=== PATIENT | female | born 1985 | race Caucasian/White ===

== ENCOUNTER 2018-06-10 21:21 | Emergency (ER) | payer MEDICAID ==
--- NOTE | 2018-06-10 22:20 | EDPHY ---
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 Patient received IM epinephrine and IV Benadryl and Zofran prior to arrival. She then received Solu-Medrol and additional Benadryl by EMS. Patient arrives feeling much better. She has mild residual left eye swelling and uvular swelling. She is tolerating secretions well. No hypoxia, respiratory distress, audible stridor or wheezing. No reports of chest pain or chest tightness. Patient was observed for an hour and half with continued improvement in her symptoms. She does have to epi pens at home but neglected to put them in her purse tonight. She reports these are not . Case discussed with Dr. Bernard. I feel patient is safe for discharge at this time. Encouraged her to carry her EpiPen with her at all times. I encouraged primary care recheck. Warning signs return to emergency department sooner were outlined in person and discharge papers. DIFFERENTIAL DX: Differential includes but not limited to anaphylactic reaction, upper or lower airway compromise, severe bronchoconstriction, angioedema ED PROCEDURES: See lab and/or imaging results below ED COURSE: Patient arrives by EMS. I greeted ambulance. Patient is speaking in full sentences with no audible respiratory distress, wheezing or stridor. Vital signs stable, no hypoxia. Patient reports she is feeling much better. She received an additional 25 mg of Benadryl and 125 of Solu-Medrol in route. Prior to arrival she received 25 mg IV Benadryl, 0.3 mg IM epinephrine, and 4 mg IV Zofran by [facility]. 10:50 P.M.: Patient reassessed, feeling much better, ambulated to the restroom , unsure if her EpiPen is . I will prescribe her EpiPen x2 to have at home. PCP follow-up recommended. Patient verbalized understanding. CHIEF COMPLAINT: Allergic reaction HPI: This is a very pleasant 32-year-old female who presents to the emergency department by EMS from [facility] with an allergic reaction. Patient accidentally ingested walnuts that were in a dessert she had this evening. Patient has a known peanut allergy and normally carries an EpiPen with her but forgot to put it in her purse today. She and her friend reports she immediately had facial swelling, left eye swelling, tongue swelling, throat tightness and chest tightness. She went to a local urgent care, received IV Benadryl, Zofran, and IM epinephrine at approximately 8:50 p.m.. She received Solu-Medrol and an additional dose of Benadryl in route by EMS. Upon arriving here, patient reports she is feeling much better. She is tolerating secretions well. No reported chest tightness or wheezing. She reports she has never had to be intubated for allergic reactions in the past. She was in the emergency department in March last year for an allergic reaction at a time when she again for got her EpiPen and accidentally ingested peanuts. She reports she does have 2 epi pens that are not . She is visiting our area from [place]. She initially felt nauseous but reports this is improved and denies abdominal pain. She denies . PAST MEDICAL HISTORY: Anaphylactic reaction to peanuts See nurse/triage notes for additional history if applicable Pertinent Past Surgical History: None reported Family History: Noncontributory Social History: Nonsmoker REVIEW OF SYSTEMS: All other systems negative Constitutional: No fever, no chills, appetite change. Eyes: No discharge, vision change ENT: Positive for mild sore throat, congestion, denies ear pain. Cardiovascular: No chest pain, no palpitations. Respiratory: No cough, no shortness of breath. Gastrointestinal: No abdominal pain, no vomiting, diarrhea. Skin: No rashes, color change. Neurological: No headache, dizziness, weakness. PHYSICAL EXAM: General Appearance: Alert, oriented, appropriate, cooperative, NAD, well hydrated, non-toxic appearing, VSS, mildly tremulous, no hypoxia. HEENT: TMs are clear bilaterally no perforation or FB, no injection, no evidence of serous or mucopurulent otitis. Oropharynx clear is no erythema or exudates, no tonsillar hypertrophy or asymmetry. Mild uvular edema noted, no significant tongue swelling. Tolerating secretions well. No intraoral lesions. No drooling. No inspiratory stridor or expiratory wheezing Dentition without abnormality. Eyes: PERRLA, no acute vision change, nystagmus, swelling, discharge, pain or photosensitivity. Conjunctiva pink, no pallor or injection Neck: Supple, nontender, no lymphadenopathy, no midline pain, FROM, no meningismus. Respiratory: There are no retractions, lungs are clear to auscultation. Cardiac: Regular rate and rhythm, no murmurs or gallops. Gastrointestinal: Abdomen is soft, nontender, bowel sounds normal, no masses/ hernia, no rigidity, guarding or focal peritoneal findings. Neurological: [ Alert and oriented x 3, CN 2-12 grossly intact Skin: Warm, dry, no rashes, no nodules on palpation. MEDICAL DECISION MAKING: Patient was seen independently. Secondary supervising physician at time of evaluation was Dr. Bernard. Diagnosis: Anaphylactic reaction to walnuts . New, requires workup Summary: See Assessment and Plan for summary of ED visit Decision to obtain medical records or history from someone other than the patient: No Review / Summarize previous medical records: None available Discussed patient with another provider: [facility], Dr. Bernard Patient Progress: Improved. - History Smoking Status: Never smoked - Objective Vital Signs: Initial Vital Signs Temperature (C) 37.1 C 06/10/18 21:31 Heart Rate 108 H 06/10/18 21:31 Respiratory Rate 16 06/10/18 21:31 Blood Pressure 124/79 H 06/10/18 21:31 O2 Sat (%) 97 06/10/18 21:31 O2 Delivery Mode Room Air Allergies/Adverse Reactions: tree nut [Nuts] Allergy (Verified 06/10/18 21:34) Home Medications: Medication Instructions Recorded EPINEPHrine [Epipen 0.3 MG] 0.3 mg IM ONCE #2 syr 06/10/18 Departure - Departure Disposition: Home, Routine, Self-Care Clinical Impression: Anaphylactic reaction Qualifiers: Encounter type: initial encounter Qualified Code(s): T78.2XXA - Anaphylactic shock, unspecified, initial encounter Condition: Good Instructions: Food Allergy (ED), Anaphylaxis (ED) Additional Instructions: DISCHARGE INSTRUCTIONS FROM YOUR DOCTOR Thank you for visiting our emergency department today. Please keep in mind that discharge from the emergency department does not mean that there is nothing wrong - it simply means that we have not identified an emergency condition that requires further evaluation or treatment in the hospital. You should always plan to follow up with primary care for re-evaluation of your condition in the next 2-3 days. If you have been referred to a specialist, please call as soon as possible (today or tomorrow) to schedule your follow up appointment at the appropriate time. HE RECEIVED IM EPINEPHRINE, IV BENADRYL, SOLU-MEDROL, AND ZOFRAN THIS EVENING. WE ALSO GAVE IV FLUIDS. IT IS VERY IMPORTANT THAT YOU CARRY YOUR EPIPEN WITH HER AT ALL TIMES. PLEASE ENSURE THAT THIS IS NOT . PLEASE FOLLOW-UP WITH PRIMARY CARE DOCTOR IN [place] TOMORROW TO RECHECK. MONITOR SYMPTOMS CLOSELY AT HOME. RETURN TO EMERGENCY DEPARTMENT IMMEDIATELY FOR THROAT SWELLING OR TIGHTNESS, CHEST TIGHTNESS OR WHEEZING, DIFFICULTY SWALLOWING HER SALIVA, TONGUE SWELLING, NAUSEA OR VOMITING, OR ANY OTHER CONCERNS. People present with illnesses and injuries in different ways, and it is always possible that we have missed something. You may always return for re-evaluation if symptoms worsen or if they are not improving or if you develop new/different symptoms. Again, thank you for choosing our emergency department. We hope that you feel better. Referrals: Patient,NotPresent [Unknown] - As per Instructions Prescriptions: EPINEPHrine [Epipen 0.3 MG] 0.3 mg IM ONCE #2 syr
[2018-06-10 23:05] VITALS: BP 105/74
== END 2018-06-10 23:05 | disposition home or self-care (01) ==
DX: T78.05XA Anaphylactic reaction due to tree nuts and seeds, initial encounter (principal)